=== PATIENT | female | born 1985 | race Caucasian/White ===

== ENCOUNTER → 2022-08-10 | Outpatient (CLI) | payer SELFPAY ==
[2022-08-13 11:08] LABS: Chlamydia By Nucleic Acid AMP Negative (Negative)
[2022-08-13 14:57] LABS: Gonococcus By Nucleic Acid AMP Negative (Negative)
== END | disposition home or self-care (01) ==
PROVIDERS: PCP Nurse Practitioner Family; Referring Provider Nurse Practitioner Women's Health; Visit Provider Nurse Practitioner Women's Health
DX: Z11.3 Encounter for screening for infections with a predominantly sexual mode of transmission (principal)
CPT/HCPCS: 87491; 87591